=== PATIENT | male | born 1955 | race Caucasian/White ===

== ENCOUNTER → 2016-11-04 | Outpatient (CLI) | payer OTHER ==
[~2016-11-04] MED LIST: ALBU18002 INH; ASPI81TA28 PO; DOCU-94 PO; FLUT0.15 NAE; OXYC-57 PO; VNTHFA/IN INH
--- NOTE | 2016-11-04 13:43 | DIAGNOSTIC IMAGING REPORT ---
CHEST 2 VIEWS ROUTINE CLINICAL HISTORY: Lung nodule. COMPARISON STUDY: Chest CT October 16, 2016. FINDINGS: Cardiac size is normal. Mediastinal contours are normal. A small right pleural effusion is noted. There is no left pleural effusion. There is no evidence of pulmonary edema. Right-sided rib deformities are present. Lung nodules shown on recent chest CT are not well visualized on this exam likely due to technique. There are post surgical findings within the right hemithorax. IMPRESSION: 1. No significant change in a small right pleural effusion. 2. The lung nodules shown on recent chest CT of October 16, 2016 are not well visualized on since exam likely due to technique. Electronically signed by: Frantz Hernadez M.D. 11/04/2016 1:41 PM
== END | disposition home or self-care (01) ==
LOC: C.CPL 11:41
PROVIDERS: ATTEND Surgery
DX: C34.90 Malignant neoplasm of unspecified part of unspecified bronchus or lung (principal); J90 Pleural effusion, not elsewhere classified

== ENCOUNTER → 2016-11-05 | Outpatient (CLI) | payer OTHER ==
--- NOTE | 2016-11-05 09:08 | DIAGNOSTIC IMAGING REPORT ---
NUCLEAR MEDICINE QUANTITATIVE PERFUSION LUNG SCAN CLINICAL HISTORY: Right lung mass. COMPARISON STUDY: Chest CT October 16, 2016 and chest radiograph November 04, 2016. TECHNIQUE: 5.6 mCi of technetium 99m MAA was injected IV at 8:30 AM on November 05, 2016. Immediately following injection, imaging of the chest was performed in the anterior, posterior, BECKER, CRISTOPHER, left lateral, right lateral, LPO and RPO projections. Geometric means were calculated. FINDINGS: The detailed analysis is located within the PACS system. Geometric means were calculated. Percent perfusion within the left upper lung was 16.4%. Within the left midlung, it was 36.7% and within the left lower lung, it was 12.9%. Differential perfusion was 2.1% within the right upper lung, 22% within the right midlung and 9.8% within the right lower lung. Split perfusion was 66% left lung and 34% right lung. No segmental defects are identified. IMPRESSION: 1. Split perfusion of 66% left lung and 34% right lung, as detailed above. 2. No segmental defects identified. Electronically signed by: Frantz Hernadez M.D. 11/05/2016 9:06 AM
== END | disposition home or self-care (01) ==
LOC: C.NUCL 08:21
PROVIDERS: ATTEND Surgery
DX: R91.8 Other nonspecific abnormal finding of lung field (principal)

== ENCOUNTER → 2016-11-11 | Outpatient (CLI) | payer OTHER ==
--- NOTE | 2016-11-11 11:14 | DIAGNOSTIC IMAGING REPORT ---
PET/CT CLINICAL HISTORY: History of lung cancer status post right upper lobectomy. New nodule. TECHNIQUE: A PET/CT was performed from the skull base through the upper thighs following intravenous injection of 15.97 mCi of F 18 FDG IV. The injection was performed at 9:04 AM on November 11, 2016. and imaging began at 10:01 AM on November 11, 2016. Unenhanced CT was performed for attenuation correction purposes and anatomic localization. COMPARISON STUDY: PET/CT April 22, [address] October 16, 2016. FINDINGS: Head and neck: No areas of suspicious FDG uptake are identified within the neck. There is no cervical lymphadenopathy. Chest: Mild multifocal FDG uptake within each hilum, right greater than left, is only minimally increased since PET/CT of April 22, 2015. These foci correspond to nonenlarged lymph nodes. The SUV max of the right hilum on current exam is 3.2. It previously measured 2.6. A nonenlarged left upper mediastinal lymph node shown on image 72 measures 7 mm in short axis diameter. On CT of October 16, 2016, it measured 9 mm. This node appears to be decrease in size. This node has mild FDG uptake with an SUV max of 2. AP window lymph nodes have also decreased in size since exam of October 16, 2016. No pathologically enlarged thoracic lymph node are present on current exam. There are postsurgical findings consistent with a right upper lobectomy. A small right pleural effusion is noted. This may be chronic. A 5 mm nodule within the superior segment of the left lower lobe shown on image 77 is new since PET/CT of April 22, 2015. This is similar to exam of October 16, 2016. This is below size for evaluation by PET imaging. A 9 mm right midlung nodule shown on image 88 is unchanged since exam October 16, 2016 but new since prior PET/CT. This is also below size threshold for PET imaging. A 1 cm irregular opacity within the right apical on image 70 is unchanged since prior exam. This is also indeterminate. Abdomen and Pelvis: No suspicious FDG uptake is identified within the abdomen or the pelvis. There is no abdominal or pelvic lymphadenopathy. Musculoskeletal: No suspicious skeletal uptake is identified. IMPRESSION: 1. 9 mm right mid lung nodule and 5 mm left lower lobe nodule. These are similar to CT of October 16, 2016 but new since PET/CT of April 22, 2015. These are below size threshold for evaluation by PET imaging but are highly suggestive of a neoplastic process. These could reflect metastases or multifocal adenocarcinoma. Indeterminate 1.1 cm irregular right apical opacity. 2. Status post right upper lobectomy. Stable small right pleural effusion. 3. Interval decrease in several mediastinal lymph nodes since CT of October 16, 2016. No enlarged nodes on this exam. Mild multifocal bilateral hilar karl uptake is nonspecific and only minimally increased since PET/CT of April 22, 2015. This likely corresponds to nonenlarged lymph nodes. This uptake is nonspecific although not highly suggestive of karl spread of disease. Electronically signed by: Frantz Hernadez M.D. 11/11/2016 11:12 AM Dictated Date/Time: 11/11/2016 10:49 AM
== END | disposition home or self-care (01) ==
LOC: C.PET 08:56
PROVIDERS: ATTEND Surgery
DX: R91.8 Other nonspecific abnormal finding of lung field (principal); R91.1 Solitary pulmonary nodule

== ENCOUNTER → 2016-11-12 | Outpatient (CLI) | payer OTHER ==
--- NOTE | 2016-11-12 08:04 | DIAGNOSTIC IMAGING REPORT ---
CT OF THE CHEST WITHOUT CONTRAST SUPERDIMENSIONAL PROTOCOL CT DOSE: 283.27 mGy.cm CLINICAL HISTORY: Right lung nodule. History of lung cancer status post right upper lobectomy. TECHNIQUE: Axial images of the chest were obtained without IV contrast according to the superdimensional protocol. COMPARISON STUDY: Chest CT October 16, 2016 and PET/CT November 11, 2016. FINDINGS: There are post surgical findings consistent with a right upper lobectomy. No enlarged axillary, mediastinal or hilar lymph nodes are present. The size of the heart is normal. There is no pericardial effusion. A small right pleural effusion is unchanged. This may be chronic. Note is made of a 9 mm right mid lung nodule shown on axial image 120 346. This is mixed solid and groundglass. This nodule has increased in size since exam of July 20, 2016 is new since chest CT of June 28, 2015. There is a similar appearing but smaller 8 mm nodule within the superior segment of the left lower lobe shown on image 94 346. This is also new since CT of June 28, 2015. A 1.2 cm irregular density within the right apex shown on image 60 of 346 is indeterminate. This is unchanged since CT of July 20, 2016. The bony thorax and upper abdomen are unremarkable. IMPRESSION: 1. 9 mm mixed solid and groundglass right midlung nodule and 8 mm groundglass nodule within the left lower lobe. These are suggestive of a neoplastic process and could reflect metastases or multifocal adenocarcinoma. 2. No thoracic lymphadenopathy. 3. Status post right upper lobectomy. Stable small right pleural effusion. 4. Stable indeterminate 1.2 cm right apical irregular density which can be assessed on subsequent exams. Electronically signed by: Frantz Hernadez M.D. 11/12/2016 8:02 AM Dictated Date/Time: 11/12/2016 7:52 AM
== END | disposition home or self-care (01) ==
LOC: C.CTS 06:49
PROVIDERS: ATTEND Surgery
DX: R91.8 Other nonspecific abnormal finding of lung field (principal); Z90.2 Acquired absence of lung [part of]

== ENCOUNTER 2016-11-25 05:36 | Day surgery (SDC) | payer OTHER ==
[2016-11-10 16:05] VITALS: BMI 22.0
[~2016-11-25] VITALS: Ht 180.3 cm; Wt 73.0 kg
[~2016-11-25 05:36] MED LIST changes: -DOCU-94 PO; -OXYC-57 PO; -VNTHFA/IN INH
[2016-11-25] MEDS ORDERED: LACTATED RINGER'S 1000ML 1,000 ML IV SCH (06:00)
[2016-11-25 06:32] VITALS: BP 132/78; PULSE 70; TEMP 36.6; O2SAT 98; Ht 180.3 cm; Wt 73.0 kg
[2016-11-25] MEDS ORDERED: FENTANYL CITRATE INJ 50 MCG/1 ML 2 ML VIAL ONE (06:47)
[2016-11-25] MEDS ORDERED: MIDAZOLAM HCL 1 MG/ML 2ML VIAL ONE (06:47)
--- NOTE | 2016-11-25 07:05 | History & Physical Bridge Note ---
H&P Re-Evaluation Bridge Note: I have examined the patient, reviewed the History & Physical and in the interval since the performance of the History & Physical I have noted the following changes of clinical significance: No changes noted
[2016-11-25] MEDS ORDERED: ROCURONIUM BROMIDE 10 MG/ML 5 ML VIAL ONE (08:22)
[2016-11-25] MEDS ORDERED: ALBUTEROL HFA INHALER 8.5 GM INH ONE (08:22)
[2016-11-25] MEDS ORDERED: LIDOCAINE HCL 2% 2 ML VIAL (20MG/ML) ONE (08:22)
[2016-11-25] MEDS ORDERED: SUCCINYLCHOLINE CHLORIDE 20 MG/ML 10 ML VIAL IV ONE (08:22)
[2016-11-25] MEDS ORDERED: PROPOFOL IV EMULSION 10 MG/ML 20 ML VIAL IV ONE (08:22)
[2016-11-25] MEDS ORDERED: LARYING-O-JET KIT (LTA) EXT ONE ×2 (08:22)
[2016-11-25] MEDS ORDERED: ONDANSETRON INJ 2 MG/ML 2 ML VIAL ONE (08:22)
[2016-11-25] MEDS ORDERED: DEXAMETHASONE SOD INJ 4 MG/ML VIAL ONE (08:22)
--- NOTE | 2016-11-25 08:23 | Discharge Instructions ---
Discharge Instructions Visit Reason for Visit: Right Lung Nodule Discharge Discharge Diagnosis / Problem: Right Lung Nodule Discharge Goals Goal(s): Learn about illness Activity Recommendations Activity Limitations: resume your previous activity (in 24 hours) Anesthesia . Post Anesthesia Instructions: If you have had General Anesthesia or IV Sedation: * Do not drive today. * Resume driving when surgeon permits. * Do not make important decisions or sign legal documents today. * Call surgeon for: 1. Temperature elevations greater than 101 degrees F. 2. Uncontrollable pain. 3. Excessive bleeding. 4. Persistent nausea and vomiting. 5. Medication intolerance (nausea, vomiting or rash). * For nausea and vomiting use only clear liquids such as: tea, soda, bouillon until nausea subsides, then gradually increase diet as tolerated. * If you have any concerns or questions, call your surgeon's office. If physician is unavailable and it is an emergency, call 911 or go to the nearest emergency room. . Instructions / Follow-Up Instructions / Follow-Up 1. You may cough up some blood. Call physician if excessive amount noted. 2. Keep your scheduled appointment with Dr. Cornejo on 11/25/16 @ 9:30 am. Diet Recommendations Recommended Home Diet: resume previous diet Pending Studies Studies pending at discharge: no Medical Emergencies . Who to Call and When: Medical Emergencies: If at any time you feel your situation is an emergency, please call 911 immediately. . Non-Emergent Contact Non-Emergency issues call your: Surgeon . . "Provider Documentation" section prepared by Kingston Epps.
[2016-11-25] MEDS ORDERED: CLINDAMYCIN PHOS 150 MG/ML 2 ML VIAL ONE (08:28)
[2016-11-25] MEDS ORDERED: GLYCOPYRROLATE INJ 0.2 MG/ML VIAL ONE (08:29)
[2016-11-25] MEDS ORDERED: NEOSTIGMINE METHYLSULFATE 5 MG/5 ML SYR ONE (08:29)
--- NOTE | 2016-11-25 09:59 | DIAGNOSTIC IMAGING REPORT ---
FLUOROSCOPIC IMAGES OF THE CHEST CLINICAL HISTORY: Navigational bronchoscopy. COMPARISON STUDY: Chest CT November 12, 2016. Fluoroscopy time: 5 minutes and 7 seconds. FINDINGS: 2 fluoroscopic images were obtained from bilateral bronchoscopy. Fiducial markers are noted. IMPRESSION: Fluoroscopic images from bilateral bronchoscopy with fiducial marker placement. Electronically signed by: Frantz Hernadez M.D. 11/25/2016 9:57 AM Dictated Date/Time: 11/25/2016 9:55 AM
[2016-11-25] MEDS ORDERED: FENTANYL CITRATE INJ 50 MCG/1 ML 2 ML VIAL IV PRN (10:15)
[2016-11-25] MEDS ORDERED: NALOXONE HCL 0.4 MG/1 ML VIAL/CARP IV PRN (10:15)
[2016-11-25] MEDS ORDERED: EpHEDrine SULFATE INJ 50 MG/ML AMP IV PRN (10:15)
[2016-11-25] MEDS ORDERED: FLUMAZENIL 0.1 MG/1 ML 10 ML VIAL IV PRN (10:15)
[2016-11-25] MEDS ORDERED: ONDANSETRON INJ 2 MG/ML 2 ML VIAL IV PRN (10:15)
[2016-11-25] MEDS ORDERED: PROMETHAZINE HCL INJ 12.5 MG in SODIUM CHLORIDE 0.9% 50ML 50 ML IV PRN (10:15)
[2016-11-25] MEDS ORDERED: ATROPINE SULFATE 0.1 MG/ML 5ML SYR IV PRN (10:15)
[2016-11-25] MEDS ORDERED: LABETALOL HCL IV 5 MG/ML 20ML IV PRN (10:15)
--- NOTE | 2016-11-25 10:32 | DIAGNOSTIC IMAGING REPORT ---
CHEST ONE VIEW PORTABLE CLINICAL HISTORY: s/p EBUS and navigational bronchoscopy. COMPARISON STUDY: Chest CT T November 12, 2016. FINDINGS: A small right pleural effusion is unchanged. There is no pneumothorax. Bilateral fiducial markers have been placed. Moderate airspace opacity is noted adjacent to the right fiducial marker with mild opacity noted adjacent to the left fiducial marker. Post surgical findings within the right hemithorax are noted. IMPRESSION: 1. No pneumothorax status post bilateral bronchoscopy. 2. Small right pleural effusion which is unchanged. 3. Interval placement of bilateral fiducial markers with adjacent airspace opacity. Electronically signed by: Frantz Hernadez M.D. 11/25/2016 10:30 AM Dictated Date/Time: 11/25/2016 10:28 AM
--- NOTE | 2016-11-25 10:45 | OPERATIVE REPORT ---
DATE OF OPERATION: 11/25/2016 PREOPERATIVE DIAGNOSIS: 1. Bilateral lower lobe nodules. 2. Status post right middle and upper bilobectomy for nonsmall cell lung carcinoma in the past. POSTOPERATIVE DIAGNOSIS: Same. PROCEDURE: 1. Endobronchial ultrasound with biopsy of mediastinal lymph nodes. 2. Navigational bronchoscopy with biopsies and fiducial markers, both the right lower lobe and left lower lobe masses. SURGEON: Dr. Cornejo. PROCESSING SUPERVISOR: Bartolome Mills, respiratory therapy. ANESTHESIA: General anesthesia with endotracheal intubation. INDICATION FOR PROCEDURE AND FINDINGS: Jaron Vila is a very nice 61-year-old male who underwent a right upper and middle bilobectomy for nonsmall cell lung carcinoma. He has done well in the interim and an underwent a routine screening CT scan and was found to have a suspicious nodule in his remaining right lower lobe as well as superior segment of the left lower lobe. I evaluated him and felt that a navigational bronchoscopy with a full workup including a PET scan were indicated. On 11/25/2016 I brought the patient to the operating room and did an uncomplicated video mediastinoscopy and biopsied multiple lymph node stations. We got lymphocytes back on the fine needle aspirations with rapid on-site evaluation but did not see evidence of malignancy. I then did a navigational bronchoscopy and felt I was in the area of both these masses, especially with the ultrasound guidance, although the left lower lobe mass was difficult given the fact that it was in the superior segment. I biopsied the right side with brushes and needles, biopsy forceps with touch preps and wash and then left a fiducial marker. On the left I was a bit more comfortable with how close we were to the pleura, so I did brushes and did a single needle biopsy. I then did washings and left a fiducial marker. The rapid on-site evaluation did not show evidence of malignancy. PROCEDURE: The patient was brought to the operating room and laid supine position. General anesthesia induced and endotracheal intubation was performed with a single lumen tube. After appropriate timeout had again been called and prophylactic antibiotics had been given a endobronchial ultrasound scope was placed. I first went down to the left level 11 area and saw some small lymph nodes which I biopsied, although they were less than 5 mm, came back up to the level 10 node and biopsied this several times and got lymphocytes, no evidence of malignancy. I biopsied the left level 4 area and got lymphocytes, no evidence of malignancy. I then biopsied the level 7 node several times, 3 from the left side and 3 from the right side, again the rapid on-site evaluation showed lymphocytes but no evidence of malignancy. I then biopsied the level 11 node on the right and level 4 node. I had difficulty seeing a level 10 node. The patient did have a bilobectomy in the past and has some scarring. We got lymphocytes back but no evidence of malignancy. We irrigated this out so no significant bleeding. I then removed the endobronchial ultrasound scope. Regular flexible bronchoscope was placed and I carefully inspected down to the tertiary airways and saw no evidence of any endobronchial lesions. The middle lobe and the upper lobe stumps appeared to be intact. The navigational probe was then placed through the working channel with the fiberoptic bronchoscope. The superDimension probe was then used to register the patient's airways. I then began mapping and went first into the right lower lobe and without too much manipulation was able to come right out to the mass. We could see this very well with our radial ultrasound probe. I then did brushings as well as needle biopsies and multiple forceps biopsies with a touch prep. We saw no evidence of malignancy. I elected fiducial marker and then did a washing of this area. Attention was then turned towards the left side. This was much more difficult to get to but we were finally able to get out to the mass. I was able to see it with the radial ultrasound probe and I felt we were very close to the pleura. I did brushings and then under fluoroscopic guidance and after the radial ultrasound probe showed that we were in the area of the mass I did 1 needle biopsy, but I did not want to be too aggressive as I did not want to give him the possibility of bilateral pneumothoraces. I then did washings and left a fiducial marker. I then slowly withdrew the bronchoscope and saw no evidence of bleeding. He tolerated it well. I attest to the content of the Intraoperative Record and any orders documented therein. Any exceptio ns are noted below.
--- NOTE | 2016-11-25 10:57 | Anesthesiology Progress Note ---
Anesthesia Post Op Note Date & Time Nov 25, 2016 at 10:57 Vital Signs Pain Intensity: 0 Vital Signs Past 12 Hours Date Time Temp Pulse Resp B/P Pulse Ox O2 Delivery O2 Flow Rate FiO2 11/25/16 10:45 67 20 121/77 99 Nasal Cannula 4 11/25/16 10:35 36.4 73 20 108/80 99 Nasal Cannula 4 11/25/16 10:25 86 20 119/74 99 Mask 10 11/25/16 10:15 63 20 126/76 99 Mask 10 11/25/16 10:05 72 18 111/69 98 Mask 10 11/25/16 10:01 36.0 73 18 110/70 98 Mask 10 11/25/16 06:32 36.6 70 18 132/78 98 Room Air Notes Mental Status: alert / awake / arousable, participated in evaluation Pt Amnestic to Procedure: Yes Nausea / Vomiting: adequately controlled Pain: adequately controlled Airway Patency, RR, SpO2: stable & adequate BP & HR: stable & adequate Hydration State: stable & adequate Anesthetic Complications: no major complications apparent
[2016-11-25 11:08] VITALS: BP 119/71; PULSE 82; TEMP 37.2; O2SAT 99
[2016-11-25 11:30] VITALS: BP 119/74; PULSE 87; TEMP 37.2; O2SAT 94
[2016-12-09] MEDS ORDERED: VNTHFA/IN INH (14:54)
== END 2016-11-25 12:02 | disposition home or self-care (01) ==
LOC: C.ACU 05:36
PROVIDERS: ATTEND Surgery
DX: R91.8 Other nonspecific abnormal finding of lung field (principal); R91.1 Solitary pulmonary nodule; R05 Cough; Z85.118 Personal history of other malignant neoplasm of bronchus and lung; Z87.891 Personal history of nicotine dependence; Z80.8 Family history of malignant neoplasm of other organs or systems

== ENCOUNTER 2016-12-18 10:15 | Inpatient (IN) | payer OTHER ==
[2016-12-09 14:57] VITALS: BMI 22.0
[2016-12-18] VITALS (8 sets, daily range): BP systolic 90–139; BP diastolic 58–88; PULSE 88–115; TEMP 36.4–37; O2SAT 95–100; Ht 180.3 cm; Wt 73.0 kg
[~2016-12-18] VITALS: Ht 180.3 cm; Wt 73.0 kg
[~2016-12-18 10:15] MED LIST changes: -ALBU18002 INH; +DEXAMETHASONE SOD INJ 4 MG/ML VIAL ONE; +FENTANYL CITRATE INJ 50 MCG/1 ML 2 ML VIAL ONE; +GLYCOPYRROLATE INJ 0.2 MG/ML VIAL ONE; +LACTATED RINGER'S 1000ML 1,000 ML IV SCH; +LIDOCAINE HCL 2% 2 ML VIAL (20MG/ML) ONE; +MIDAZOLAM HCL 1 MG/ML 2ML VIAL ONE; +NEOSTIGMINE METHYLSULFATE 5 MG/5 ML SYR ONE; +ONDANSETRON INJ 2 MG/ML 2 ML VIAL ONE; +PROPOFOL IV EMULSION 10 MG/ML 20 ML VIAL IV ONE; +ROCURONIUM BROMIDE 10 MG/ML 5 ML VIAL ONE; +VNTHFA/IN INH
[2016-12-18] MEDS ORDERED: BUPIVACAINE LIPOSOME 1/3% 266 MG/20 ML VIAL INFIL ONE (10:47)
[2016-12-18] MEDS ORDERED: SODIUM CHLORIDE 0.9% PF 50 ML VIAL ONE (10:47)
[2016-12-18] MEDS ORDERED: PROPOFOL IV EMULSION 10 MG/ML 20 ML VIAL IV ONE (12:11)
[2016-12-18] MEDS ORDERED: ROCURONIUM BROMIDE 10 MG/ML 5 ML VIAL ONE (12:34)
[2016-12-18] MEDS ORDERED: FLUMAZENIL 0.1 MG/1 ML 10 ML VIAL IV PRN (13:00)
[2016-12-18] MEDS ORDERED: ATROPINE SULFATE 0.1 MG/ML 5ML SYR IV PRN (13:00)
[2016-12-18] MEDS ORDERED: ONDANSETRON INJ 2 MG/ML 2 ML VIAL IV PRN ×2 (13:00→14:15)
[2016-12-18] MEDS ORDERED: LABETALOL HCL IV 5 MG/ML 20ML IV PRN (13:00)
[2016-12-18] MEDS ORDERED: NALOXONE HCL 0.4 MG/1 ML VIAL/CARP IV PRN (13:00)
[2016-12-18] MEDS ORDERED: PROMETHAZINE HCL INJ 12.5 MG in SODIUM CHLORIDE 0.9% 50ML 50 ML IV PRN (13:00)
[2016-12-18] MEDS ORDERED: EpHEDrine SULFATE INJ 50 MG/ML AMP IV PRN (13:00)
[2016-12-18] MEDS ORDERED: FENTANYL CITRATE INJ 50 MCG/1 ML 2 ML VIAL ONE (13:23)
[2016-12-18] MEDS ORDERED: OXYCODONE/ACETAMINOPHEN 5-325 TAB PO PRN (14:15)
[2016-12-18] MEDS ORDERED: MoRPHine SULFATE 2 MG/ML CARP IV PRN (14:15)
[2016-12-18] MEDS ORDERED: ALBUTEROL HFA 8 GM INHALER INH PRN (14:15)
--- NOTE | 2016-12-18 15:15 | DIAGNOSTIC IMAGING REPORT ---
SINGLE VIEW CHEST CLINICAL HISTORY: Status post left upper lobe resection. FINDINGS: An AP, portable, upright chest radiograph is compared to study dated 11/25/2016. Correlation is made with chest CT dated 11/12/2016. The examination is degraded by portable technique and patient rotation. The heart is normal in size. There is evidence carotid calcification of the thoracic area. The pulmonary vasculature is noncongested. Emphysema is noted. There are chronic changes from right-sided pulmonary resection. A fiducial projects over the right chest. A left chest tube is located at the left apex, and there is evidence of left-sided pulmonary resection. The left upper lobe fiducial seen previously is no longer identified. Pleural fluid is noted at both lung bases. There are patchy airspace opacities at the left lung base. No pneumothorax is seen. Subcutaneous emphysema is present along the left chest wall and in the left neck. The skeletal structures are osteopenic. Degenerative change and scoliosis are present in the thoracic spine. There are healed right posterior rib fractures. IMPRESSION: 1. There are postoperative changes from left-sided pulmonary resection with a left chest tube in place. No pneumothorax is seen. 2. Emphysema and chronic changes from previous right-sided pulmonary resection are noted. 3. Pleural fluid is present at both lung bases. Airspace opacities at the left lung base may represent atelectasis. Clinical correlation will be required. Electronically signed by: Landry Womack M.D. 12/18/2016 3:14 PM Dictated Date/Time: 12/18/2016 3:09 PM
[2016-12-18 15:16] LABS: ARTERIAL BLD GAS O2 SATURATION 99.3 % (90-95); ARTERIAL BLOOD GAS BASE EXCESS -2.3 mEq/L (-9-1.8); ARTERIAL BLOOD GAS HCO3 24 mmol/L (19-24); ARTERIAL BLOOD GAS PO2 179 mm/Hg (80-95); ARTERIAL BLOOD GAS pH 7.35 (7.35-7.45)
[2016-12-18 15:28] LABS: O2 ADMINISTRATION 50%
[2016-12-18] MEDS: HYDROmorphone INJ 1 MG/ML SYR IV PRN ×5 (15:38→16:15)
--- NOTE | 2016-12-18 16:35 | Anesthesiology Progress Note ---
Anesthesia Post Op Note Date & Time Dec 18, 2016 at 16:34 Vital Signs Pain Intensity: 8 Vital Signs Past 12 Hours Date Time Temp Pulse Resp B/P Pulse Ox O2 Delivery O2 Flow Rate FiO2 12/18/16 15:20 72 18 98 Mask 10 102/59 12/18/16 15:14 64 11 12/18/16 15:14 64 11 100/58 12/18/16 15:10 64 22 109/39 92 Mask 10 92/50 12/18/16 15:09 64 23 109/39 97 12/18/16 15:09 62 23 12/18/16 15:04 17 12/18/16 15:04 64 17 87/54 12/18/16 15:03 81/59 12/18/16 15:00 68 18 Mask 10 86/48 12/18/16 14:59 65 23 12/18/16 14:59 67 23 90/54 12/18/16 14:54 64 22 12/18/16 14:54 75 22 94/53 92 12/18/16 14:53 95/70 12/18/16 14:50 65 22 100 Mask 10 94/47 12/18/16 14:49 60 26 95/49 100 12/18/16 14:49 60 26 12/18/16 14:44 62 27 12/18/16 14:44 63 27 300/300 91 12/18/16 14:43 64 23 92/55 100 12/18/16 14:43 63 23 12/18/16 14:43 36.1 71 24 84/50 94 Mask 10 94/51 12/18/16 10:33 36.9 105 20 139/88 95 Room Air Notes Mental Status: alert / awake / arousable, participated in evaluation Pt Amnestic to Procedure: Yes Nausea / Vomiting: adequately controlled Pain: adequately controlled Airway Patency, RR, SpO2: stable & adequate BP & HR: stable & adequate Hydration State: stable & adequate Anesthetic Complications: no major complications apparent Patient awake and stable. Acceptable oxygenation on nasal cannula. CO2 not impaired by ABG drawn in pacu. Minimal leak noted in chest tube. CXR done after 1.5 hours in pacu revealed no expanding pneumothorax. Pain control is acceptable on intermittent small bolus dosing of narcotics. Okay to go to floor overnight.
--- NOTE | 2016-12-18 16:43 | DIAGNOSTIC IMAGING REPORT ---
CHEST ONE VIEW PORTABLE CLINICAL HISTORY: Follow up postoperative evaluation COMPARISON STUDY: 12/18/2016 FINDINGS: Expected postoperative changes post left upper lobe resection. Left-sided chest tube in position. No significant postprocedural pneumothorax. Residual atelectatic change left lung base. Cutaneous emphysematous change stable. IMPRESSION: Stable postoperative changes as described. No new or interval finding. Electronically signed by: Daniel Soler M.D. 12/18/2016 4:42 PM Dictated Date/Time: 12/18/2016 4:41 PM
--- NOTE | 2016-12-18 16:46 | OPERATIVE REPORT ---
DATE OF OPERATION: 12/18/2016 PREOPERATIVE DIAGNOSES: 1. Bilateral lower lobe nodules. 2. History of nonsmall cell lung carcinoma with right upper lobectomy in the past. POSTOPERATIVE DIAGNOSIS: Apparent metastatic carcinoma to left lower lobe of lung. PROCEDURES: 1. Left thoracoscopy with extensive lysis of adhesions. 2. Wedge resection of mass, superior segment of the left upper lobe. 3. Wedge resection with repair of air leak, left lower lobe. SURGEON: Dr. Cornejo. SUPERVISOR CHEMICAL: PHILLIP Monson. SPECIFICS OF PROCEDURE: Mr. Vila is a 61-year-old male who has a history of having undergone a right upper lobectomy about a year and half ago. He was a stage I and had a nonsmall cell lung carcinoma. The patient did well until a recent surveillance CT scan showed he had 2 new masses that are very small, one in the remaining right lower lobe which is a bit more intraparenchymal, more than the superior segment of the left lower lobe. I discussed this case with cancer conference as this is an interesting patient as far as how to approach this. These lesions were not amenable to needle biopsy. Navigational bronchoscopy was considered and I took him to the operating room and did the navigational bronchoscopy and biopsied both of these areas as well as endobronchial ultrasound with biopsy of mediastinal lymph nodes. I left fiducial markers at both. We did not get a diagnosis. Discussed this with the patient and I offered him a left thoracoscopy as I felt it would be very simple proceeding to excise the superior segment of the left lower lobe with a wedge resection. PROCEDURE IN DETAIL: On 12/18/2016, the patient was brought to the operating room and I was a bit dismayed to see how much adhesions he had. I reinsufflated with CO2 and was finally able to get into the pleural cavity and took down these adhesions meticulously using a hooked cautery as well as the Harmonic scalpel. I placed 2 other 10 mm ports, one anteriorly about the seventh interspace and one about the fourth interspace, a bit more posterior. After taking down all these adhesions, I then was able to palpate this with the incisions and wedge this out. This appears to be metastatic adenocarcinoma and similar in appearance to his tumor from a year and half ago. We stopped there. However, on closing his chest, he had a significant air leak, went back and in the area where he had taken down adhesions did have a leak. I was able to wedge this out with a stapler. We really did not see an air leak after that. We irrigated out the chest. His blood loss was negligible. A 24-Cypriot chest tube was placed in the anterior thoracoscopy port and sutured in place with heavy silk suture and multiple layers of all 3 ports were closed with a 0 Vicryl. A 24-Cypriot chest tube was sutured in place with a heavy silk suture. 3-0 Vicryl impregnated with antibiotics was used to close the skin incisions of all 3 incisions in a running fashion. He tolerated it well with negligible blood loss and was extubated in the room. I attest to the content of the Intraoperative Record and any orders documented therein. Any exceptio ns are noted below.
[2016-12-18 19:01] LABS: PROTHROMBIN TIME (PATIENT) 10.4 SECONDS (9.0-12.0)
[2016-12-18] MEDS: KETOROLAC TROMETHAMINE 15 MG/ML VIAL IV. SCH (19:36)
[2016-12-18] MEDS: CLINDAMYCIN IV 900 MG in DEXTROSE 5% ADD-VANTAGE 100ML 100 ML IV SCH (19:36)
[2016-12-18] MEDS: D5W AND 1/2NSS 1,000 ML IV SCH (19:37)
[2016-12-18] MEDS: ACETAMINOPHEN IV 1,000 MG in EMPTY BAG 0 ML IV SCH (20:43)
[2016-12-18] MEDS: DOCUSATE SODIUM 100 MG CAP PO SCH (20:44)
[2016-12-18] MEDS: METOCLOPRAMIDE HCL INJ 5 MG/ML 2 ML VIAL IV. SCH (20:45)
[2016-12-19] MEDS: CLINDAMYCIN IV 900 MG in DEXTROSE 5% ADD-VANTAGE 100ML 100 ML IV SCH (00:10)
[2016-12-19] MEDS: KETOROLAC TROMETHAMINE 15 MG/ML VIAL IV. SCH ×2 (02:25→07:57)
[2016-12-19] MEDS: ACETAMINOPHEN IV 1,000 MG in EMPTY BAG 0 ML IV SCH ×2 (02:25→07:57)
[2016-12-19 03:23] VITALS: BP 96/61; PULSE 78; TEMP 36.5; O2SAT 95
[2016-12-19] MEDS: D5W AND 1/2NSS 1,000 ML IV SCH ×2 (04:05→11:45)
[2016-12-19] MEDS: METOCLOPRAMIDE HCL INJ 5 MG/ML 2 ML VIAL IV. SCH ×2 (05:33→11:46)
[2016-12-19 06:57] VITALS: BP 95/60; PULSE 77; TEMP 36.5; O2SAT 96
--- NOTE | 2016-12-19 07:22 | DIAGNOSTIC IMAGING REPORT ---
CHEST ONE VIEW PORTABLE CLINICAL HISTORY: s/p left wedge resection COMPARISON STUDY: Chest radiograph December 18, 2016. FINDINGS: A left-sided chest tube is in place. Gas within the left chest wall and left neck is noted. There is a suspected tiny left apical pneumothorax. A fiducial marker within the right lung is noted. Mild left basilar opacity persists. IMPRESSION: 1. Suspected tiny left apical pneumothorax. Left chest tube in place. 2. Mild left basilar opacities which favor atelectasis. Electronically signed by: Frantz Hernadez M.D. 12/19/2016 7:21 AM Dictated Date/Time: 12/19/2016 7:19 AM
[2016-12-19] MEDS ORDERED: DOCU-94 PO (07:25)
[2016-12-19] MEDS ORDERED: OXYC-57 PO (07:25)
--- NOTE | 2016-12-19 07:28 | Discharge Instructions ---
Discharge Instructions Admission Reason for Admission: Left Lung Mass Discharge Discharge Diagnosis / Problem: Left Lung Mass Discharge Goals Goal(s): Learn about illness Activity Recommendations Activity Limitations: as noted below Lifting Limitations: none Shower/Bathe: may shower/bathe in [address] if taking percocet. 2. You may remove dressing and shower in 3 days. No tub baths. 3. Do not fly or SCUBA dive until cleared to do so by [facility] Juárez. . Instructions / Follow-Up Instructions / Follow-Up 1. Office appointment with Dr. Cornejo in 1-2 weeks. Office will call you with date and time of appointment. You will need a chest x-ray prior to appointment. Current Hospital Diet Patient's current hospital diet: Regular Diet Discharge Diet Recommended Diet: Regular Diet Procedures Procedures Performed: Left Video-Assisted Thoracoscopy with Left Lower Lobe Wedge Resection Pending Studies Studies pending at discharge: no Medical Emergencies . Who to Call and When: Medical Emergencies: If at any time you feel your situation is an emergency, please call 911 immediately. . Non-Emergent Contact Non-Emergency issues call your: Surgeon Call Non-Emergent contact if: you have a fever, your pain is not controlled, wound has increased drainage . "Provider Documentation" section prepared by Kingston Epps. VTE Core Measure Inpt VTE Proph given/why not?: Enoxaparin (Lovenox)SQ
--- NOTE | 2016-12-19 07:33 | Discharge Summary ---
Discharge Summary Admission Date: Dec 18, 2016 at 11:10 Discharge Date: Dec 19, 2016 Discharge Disposition: Home Principal Diagnosis: Left Lung Mass Immunizations: Have You Had Influenza Vaccine: No History of Tetanus Vaccine?: Yes Tetanus Immunization Date: Nov 01, 1995 History of Pneumococcal: Unknown History of Hepatitis B Vaccine: Unknown Procedures: Left VATS with Wedge Rresection Consultations: none Medication Reconciliation New Medications: Docusate Sodium (Colace) 100 Mg Cap 1 CAP PO BID for 30 Days, #60 CAP 2 Refills Oxycodone/Acetaminophen 5MG/325MG (Percocet 5MG/325MG) Tab 1-2 TABLETS PO Q4H PRN for Pain, #25 TAB Continued Medications: Albuterol Hfa (Ventolin Hfa) 200 Puffs/91918 Mcg Aers 2-4 PUFFS INH Q6H PRN for Shortness of Breath, #1 INHALER Aspirin (Aspirin Ec) 81 Mg Tab 81 MG PO QAM DOESNT NEED TO HOLD PER PATIENT Fluticasone Propionate (Nasal) (Flonase Allergy Relief) 50 Mcg/Act Spr 2 SPRAY COREY DAILY Discharge Exam Review of Systems: Constitutional: No chills, No fever Respiratory: No cough, No shortness of breath Cardiovascular: No chest pain Abdomen: No nausea, No pain, No vomiting Physical Exam: General Appearance: WD/WN, no apparent distress Respiratory/Chest: lungs clear, normal breath sounds, no respiratory distress, no accessory muscle use Cardiovascular: regular rate, rhythm Abdomen / GI: non tender, soft Extremities: no calf tenderness Neurologic/Psychiatric: alert, oriented x 3 Hospital Course 61 year old male with hx. of lung cancer -he had previously undergone RUL and RML -due to new lung nodules he underwent left VATS with wedge resection: -path at time of d/c was pending -pain control measures implemented post-op -pt. encourgaed to use IS, cough, ambulate, and deep breath -CXR post op was without significatn pneumothorax -CT had minimal drainage and no air leak: -tube was pulled on POD#1 -post-pull CXR showed no pneumothorax OTHER -lovenox used post-op for DVT prevention Total Time Spent: Greater than 30 minutes This includes examination of the patient, discharge planning, medication reconciliation, and communication with other providers. Discharge Instructions Please refer to the electronic Patient Visit Report (Discharge Instructions) for additional information. Follow-Up 1. WILL[facility] Surgery in 1-2 weeks with a CXR. Office to call patient with date and time of appointment. Additional Copies To Addy Cornejo MD
[2016-12-19] MEDS: DOCUSATE SODIUM 100 MG CAP PO SCH (07:37)
--- NOTE | 2016-12-19 07:55 | DIAGNOSTIC IMAGING REPORT ---
CHEST ONE VIEW PORTABLE CLINICAL HISTORY: chest tube removal COMPARISON STUDY: Chest radiograph December 19, 2016 6:49 AM. FINDINGS: The left chest tube has been removed. Postsurgical findings within the left hemithorax are noted. Gas within left chest wall and neck is unchanged. No pneumothorax is identified. Mild left basilar opacity favors atelectasis. A fiducial marker within the right lung is noted with old right-sided rib deformities. There is no evidence of pulmonary edema. IMPRESSION: No pneumothorax following removal of left-sided chest tube. Electronically signed by: Frantz Hernadez M.D. 12/19/2016 7:53 AM Dictated Date/Time: 12/19/2016 7:51 AM
[2016-12-19] MEDS ORDERED: FLUTICASONE PROPIONATE NA SPR 16 GM BTL NAE SCH (09:00)
[2016-12-19] MEDS ORDERED: ASPIRIN 81 MG ECTAB PO SCH (09:00)
[2016-12-19] MEDS ORDERED: ENOXAPARIN 40 MG/0.4 ML SYR SQ SCH (09:00)
[2016-12-19 11:18] VITALS: BP 104/62; PULSE 94; TEMP 37; O2SAT 95
[2016-12-19 12:24] VITALS: BP 104/62; PULSE 94; TEMP 37; O2SAT 95
== END 2016-12-19 12:35 | disposition home or self-care (01) | DRG 164 ==
LOC: ENRESERVTM → ENRESERVDT → C.ACU 10:15 → C.MSN 11:10
PROVIDERS: ADMIT Surgery; ATTEND Surgery
PROC: 0BBG4ZX Excision of Left Upper Lung Lobe, Percutaneous Endoscopic Approach, Diagnostic (ICD-10-PCS; principal; 2016-12-18 14:00)
PROC: 0BNL4ZZ Release Left Lung, Percutaneous Endoscopic Approach (ICD-10-PCS; principal; 2016-12-18 14:00)
PROC: 0BBJ4ZZ Excision of Left Lower Lung Lobe, Percutaneous Endoscopic Approach (ICD-10-PCS; principal; 2016-12-18 14:00)
DX: C78.02 Secondary malignant neoplasm of left lung (principal); J93.82 Other air leak; J94.8 Other specified pleural conditions; Z87.891 Personal history of nicotine dependence; Z83.3 Family history of diabetes mellitus; Z85.118 Personal history of other malignant neoplasm of bronchus and lung; Y83.8 Other surgical procedures as the cause of abnormal reaction of the patient, or of later complication, without mention of misadventure at the time of the procedure; Y92.234 Operating room of hospital as the place of occurrence of the external cause; Z90.2 Acquired absence of lung [part of]

== ENCOUNTER → 2016-12-28 | Outpatient (CLI) | payer OTHER ==
[~2016-12-28] MED LIST changes: -DEXAMETHASONE SOD INJ 4 MG/ML VIAL ONE; +DOCU-94 PO; -FENTANYL CITRATE INJ 50 MCG/1 ML 2 ML VIAL ONE; -GLYCOPYRROLATE INJ 0.2 MG/ML VIAL ONE; -LACTATED RINGER'S 1000ML 1,000 ML IV SCH; -LIDOCAINE HCL 2% 2 ML VIAL (20MG/ML) ONE; -MIDAZOLAM HCL 1 MG/ML 2ML VIAL ONE; -NEOSTIGMINE METHYLSULFATE 5 MG/5 ML SYR ONE; -ONDANSETRON INJ 2 MG/ML 2 ML VIAL ONE; +OXYC-57 PO; -PROPOFOL IV EMULSION 10 MG/ML 20 ML VIAL IV ONE; -ROCURONIUM BROMIDE 10 MG/ML 5 ML VIAL ONE
--- NOTE | 2016-12-28 09:07 | DIAGNOSTIC IMAGING REPORT ---
CHEST 2 VIEWS ROUTINE CLINICAL HISTORY: R91.1 Lung nodule lung nodule COMPARISON STUDY: 12/19/2016 FINDINGS: Continued improvement in aeration both hemithoraces. 2. Old right-sided rib fractures. No well-defined pulmonary nodularity based on this exam. IMPRESSION: Improved exam with aeration of both lungs improved. Trace pleural fluid posterior costophrenic angles. No significant parenchymal nodularity based on routine chest evaluation Electronically signed by: Daniel Soler M.D. 12/28/2016 9:05 AM Dictated Date/Time: 12/28/2016 9:04 AM
== END | disposition home or self-care (01) ==
LOC: C.RAD 08:36
PROVIDERS: ATTEND Surgery
DX: R91.1 Solitary pulmonary nodule (principal)

== ENCOUNTER → 2017-04-12 | Outpatient (CLI) | payer OTHER ==
[~2017-04-12] MED LIST changes: +OPTIRAY 320 IV PRN
--- NOTE | 2017-04-12 15:13 | DIAGNOSTIC IMAGING REPORT ---
CT ABD/PELVIS IV AND ORAL CONT CLINICAL HISTORY: LUNG CA COMPARISON STUDY: None. TECHNIQUE: Following the IV administration of 93 mL of Optiray-320, CT scan of the abdomen and pelvis was performed from the lung bases to the proximal femurs. Images are reviewed in the axial, sagittal, and coronal planes. IV contrast was administered without complication. CT DOSE: FINDINGS: Lower chest: The heart is normal in size and configuration, without pericardial effusion. The lung bases and pleural spaces are clear. Liver: There is mild hepatic steatosis. No focal masses are visualized. Gallbladder: Unremarkable. Spleen: Normal in size and attenuation. Pancreas: Unremarkable. Adrenal glands: Unremarkable. Kidneys: There is symmetric renal cortical enhancement. The kidneys are normal in size without hydronephrosis. Bowel: There are no transition zones indicate bowel obstruction. By history the appendix is surgically absent. There is no acute diverticulitis. Peritoneum: There is no intraperitoneal free air or abdominal ascites. Vasculature: The abdominal aorta is normal in course and caliber. Adenopathy: None. Pelvic viscera: Prostate is borderline enlarged. Prostatic calcifications are visualized. Skeletal structures: No destructive osseous lesions are seen. IMPRESSION: No acute findings. No evidence of metastatic disease. Electronically signed by: Ralph Caal M.D. 04/12/2017 3:11 PM Dictated Date/Time: 04/12/2017 3:09 PM
--- NOTE | 2017-04-12 15:17 | DIAGNOSTIC IMAGING REPORT ---
CHEST CT WITH CONTRAST CT DOSE: 489.31 mGy.cm HISTORY: LUNG CA TECHNIQUE: Multiaxial CT images of the chest were performed following the intravenous administration of contrast. COMPARISON: 11/25/2016 FINDINGS: Apparent interval resection of the density of the left upper lung. Unchanging groundglass density right upper lung as well as right apex. No new or interval findings. No significant hilar or mediastinal adenopathy. Lung bases are considered clear. Limited evaluation the upper abdomen shows no acute abnormality. IMPRESSION: 1. Interval resection of the nodular density left upper lung. 2. Stable nodularity right hemithorax. 3. No evidence for new interval or progressive disease. Electronically signed by: Daniel Soler M.D. 04/12/2017 3:16 PM Dictated Date/Time: 04/12/2017 3:10 PM
== END ==
LOC: C.CTS 14:19
PROVIDERS: ATTEND Nurse Practitioner Family
DX: C34.90 Malignant neoplasm of unspecified part of unspecified bronchus or lung (principal)

== ENCOUNTER → 2017-07-06 | Outpatient (CLI) | payer OTHER ==
[~2017-07-06] MED LIST changes: -OXYC-57 PO
--- NOTE | 2017-07-06 13:31 | DIAGNOSTIC IMAGING REPORT ---
CHEST CT WITH CONTRAST CT DOSE: 503.82 mGy.cm HISTORY: Lung cancer. Follow-up. TECHNIQUE: Multiaxial CT images of the chest were performed following the intravenous administration of contrast. A dose lowering technique was utilized adhering to the principles of ALARA. COMPARISON: Chest CT 04/12/2017. FINDINGS: Postoperative changes consistent with a prior right upper lobectomy and left lower lobe wedge resection. The right middle lobe also appears surgically absent. Scattered linear densities within the right lung and left lower lobe favor scarring. These remain unchanged. Stable 8 mm regular density within the right lung apex on image 42. This may also represent an area of scarring. No new pulmonary nodules. There is a metallic additional marker within the right lung. A subtle adjacent right midlung zone groundglass nodule on image 101 which measures approximately 7 mm. No new pulmonary nodules. No new focal lung consolidations. No suspicious lytic or blastic osseous lesions. Old, healed bilateral rib fractures. Trace right pleural effusion and right basilar mild pleural thickening remains unchanged. The heart is normal in size. Right paratracheal surgical clips are noted. No mediastinal or hilar lymphadenopathy. Normal caliber thoracic aorta. The central pulmonary arteries are patent. IMPRESSION: 1. Overall, no significant change compared to the prior study. 2. Postoperative changes as described above. 3. A subtle 7 mm right midlung zone groundglass nodule remains stable. 4. Trace right pleural effusion and mild right basilar pleural thickening persists. Electronically signed by: Jorden Aleman M.D. 07/06/2017 1:29 PM Dictated Date/Time: 07/06/2017 1:06 PM
--- NOTE | 2017-07-06 15:07 | DIAGNOSTIC IMAGING REPORT ---
CT OF THE ABDOMEN AND PELVIS WITH CONTRAST CLINICAL HISTORY: Non-small cell lung cancer. COMPARISON STUDY: PET CT November 11, [address] of the abdomen and pelvis April 12, 2017. TECHNIQUE: Following IV administration of 93 mL of Optiray-320, axial images of the abdomen and pelvis were obtained from the lung bases to the proximal femurs. Images were reviewed in the axial, sagittal, and coronal planes. IV contrast was administered without complication. A dose lowering technique was utilized adhering to the principles of ALARA. FINDINGS: The chest portion of this study will be reported separately. A trace right pleural effusion with mild pleural thickening is unchanged. The liver, spleen, adrenal glands, kidneys and pancreas are unremarkable. There is no biliary or pancreatic ductal dilatation. No enlarged abdominal or pelvic lymph nodes are present. There is no evidence for a bowel obstruction. Caliber and wall thickness of small and large bowel are normal. The bladder is mildly distended. There are no suspicious osseous lesions. IMPRESSION: 1. No evidence of metastatic disease within the abdomen or pelvis. 2. No change in a trace right pleural effusion with mild pleural thickening. This can be assessed on subsequent studies to ensure stability. Electronically signed by: Frantz Hernadez M.D. 07/06/2017 3:05 PM Dictated Date/Time: 07/06/2017 1:14 PM
== END | disposition home or self-care (01) ==
LOC: C.CTS 10:38
PROVIDERS: ATTEND Internal Medicine Hematology & Oncology
DX: C34.90 Malignant neoplasm of unspecified part of unspecified bronchus or lung (principal); J90 Pleural effusion, not elsewhere classified

== ENCOUNTER → 2017-11-09 | Outpatient (CLI) | payer OTHER ==
--- NOTE | 2017-11-09 16:11 | DIAGNOSTIC IMAGING REPORT ---
CT SCAN OF THE ABDOMEN AND PELVIS WITH IV CONTRAST CLINICAL HISTORY: Lung cancer. COMPARISON STUDY: Abdominal CT dated 07/06/2017. PET/CT dated 11/11/2016. TECHNIQUE: Following the IV administration of 94 cc of Optiray 320, CT scan of the abdomen and pelvis is performed from the lung bases to the proximal femora. Images are reviewed in the axial, sagittal, and coronal planes. IV contrast was administered without complication. A dose lowering technique was utilized adhering to the principles of ALARA. CT DOSE: 508.79 mGy.cm FINDINGS: Lung bases: The heart is normal in size and without pericardial effusion. Postoperative change is suggested in the right lung. There is pleural fluid at the right lung base with associated pleural thickening. Foci of scarring versus atelectasis are noted at the left lung base. Liver: The contrast-enhanced liver is normal in size, contour, and attenuation. There is no intrahepatic biliary ductal dilatation. The hepatic veins and portal veins are patent. Gallbladder: Unremarkable. Spleen: Normal in size and attenuation. Pancreas: Unremarkable. Adrenal glands: Unremarkable. Kidneys: The contrast enhanced kidneys are normal in size and without hydronephrosis. The kidneys enhance symmetrically. Abdominal vasculature: The abdominal aorta is normal in course and caliber noting mild to moderate atherosclerotic calcification. Bowel: There is moderate colonic fecal retention. No bowel obstruction is seen. The appendix is not identified and reported surgically absent. Peritoneum: There is no intraperitoneal free air or abdominal ascites. There is a small fat-containing umbilical hernia. Lymphadenopathy: None. Pelvic viscera: The prostate gland is enlarged and heterogeneous, measuring 5.5 cm in transverse diameter. The bladder is normal as visualized. Skeletal structures: No lytic or blastic lesions are seen. IMPRESSION: 1. There is no evidence of metastatic disease in the abdomen or pelvis. 2. Pleural fluid with associated pleural thickening is again seen at the right lung base. This is likely on a postoperative basis. Clinical correlation will be required. 3. Prostatomegaly. 4. Additional findings as above. Electronically signed by: Landry Womack M.D. 11/09/2017 4:09 PM Dictated Date/Time: 11/09/2017 4:04 PM
--- NOTE | 2017-11-09 16:12 | DIAGNOSTIC IMAGING REPORT ---
CT OF THE CHEST WITH IV CONTRAST CLINICAL HISTORY: LUNG CANCER COMPARISON STUDY: 07/06/2017 TECHNIQUE: Following the IV administration of 94 mL of Optiray-320, CT of the thorax was performed from the thoracic inlet to the lung bases. Images are reviewed in the axial, sagittal, and coronal planes. IV contrast was administered without complication. A dose lowering technique was utilized adhering to the principles of ALARA. CT DOSE: FINDINGS: Thyroid: Imaged portions of the thyroid gland are normal in appearance. Thoracic aorta: The thoracic aorta is normal in course and caliber, noting standard 3-vessel arch anatomy. No aneurysm or dissection is seen. Pulmonary vasculature: The pulmonary trunk is normal in caliber. There are no central filling defects identified to suggest pulmonary embolus. Note that this examination was not protocoled for the evaluation of pulmonary emboli. HEART: The heart is normal in size and configuration, without pericardial effusion. Lungs and pleural spaces: There are postsurgical changes of a right upper lobectomy. Postsurgical changes are also present on the left. There is a small but increasing right pleural effusion. There is no acute parenchymal consolidation. The previously described 7 mm right midlung zone groundglass nodule is less conspicuous on today's study. There is a stable 8 mm irregular opacity within the right lung apex, likely are presenting an area of scarring Mediastinum: There is no evidence of pathologic mediastinal lymphadenopathy. Betsy: There is no evidence of pathologic hilar adenopathy. Axilla: There is no evidence of pathologic axillary lymphadenopathy. Upper abdomen: There is mild hepatic steatosis. No adrenal masses are visualized. Skeletal structures: There are old right-sided rib deformities. No destructive lesions are visualized. IMPRESSION: 1. Small but increasing right pleural effusion 2. No new or enlarging pulmonary nodules. 3. No evidence of pathologic adenopathy Electronically signed by: Ralph Caal M.D. 11/09/2017 4:11 PM Dictated Date/Time: 11/09/2017 4:03 PM
== END | disposition home or self-care (01) ==
LOC: C.CTS 15:03
PROVIDERS: ATTEND Nurse Practitioner Family
DX: C34.90 Malignant neoplasm of unspecified part of unspecified bronchus or lung (principal); N40.0 Benign prostatic hyperplasia without lower urinary tract symptoms; J90 Pleural effusion, not elsewhere classified

== ENCOUNTER → 2018-01-06 | Outpatient (CLI) | payer OTHER ==
--- NOTE | 2018-01-06 13:15 | DIAGNOSTIC IMAGING REPORT ---
CHEST CT WITH CONTRAST CT DOSE: HISTORY: Lung cancer. TECHNIQUE: Multiaxial CT images of the chest were performed following the intravenous administration of contrast. A dose lowering technique was utilized adhering to the principles of ALARA. COMPARISON: Chest CT 11/09/2017. Chest CT 07/06/2017. FINDINGS: Postoperative changes consistent with a prior right upper lobectomy and left lower lobe wedge resection. The right middle lobe also appears surgically absent. Scattered linear densities within the right lung and left lower lobe favor scarring. These remain unchanged. Stable 8 mm irregular density within the right lung apex. This may also represent an area of scarring. No new pulmonary nodules. There is a metallic fiducial marker within the right lung. A subtle adjacent right midlung zone groundglass nodule on image 128 remains unchanged. No new pulmonary nodules. No new focal lung consolidations. No suspicious lytic or blastic osseous lesions. Old, healed bilateral rib fractures. Small right pleural effusion and right basilar mild pleural thickening remains unchanged. The heart is normal in size. Right paratracheal surgical clips are noted. Stable prominent periesophageal lymph nodes. Otherwise, no mediastinal or hilar lymphadenopathy. Normal caliber thoracic aorta. The central pulmonary arteries are patent. IMPRESSION: 1. Overall, no significant change compared to the prior study. 2. Postoperative changes as described above. 3. Stable slightly prominent periesophageal lymph nodes are again noted. 4. Small right pleural effusion and mild right basilar pleural thickening persists. Electronically signed by: Jorden Aleman M.D. 01/06/2018 1:14 PM Dictated Date/Time: 01/06/2018 1:04 PM
--- NOTE | 2018-01-06 13:19 | DIAGNOSTIC IMAGING REPORT ---
CT ABD/PELVIS IV AND ORAL CONT CLINICAL HISTORY: LUNG CA COMPARISON STUDY: November 09, 2017 TECHNIQUE: Following the IV administration of 93 mL of Optiray-320, CT scan of the abdomen and pelvis was performed from the lung bases to the proximal femurs. Images are reviewed in the axial, sagittal, and coronal planes. IV contrast was administered without complication. A dose lowering technique was utilized adhering to the principles of ALARA. CT DOSE: 474.59 mGy.cm FINDINGS: Lower chest: Postsurgical changes are present on the left. There is a small left pleural effusion. Liver: No focal hepatic masses are visualized. The portal and hepatic veins appear patent. There is no ductal dilatation. Gallbladder: Unremarkable. Spleen: Normal in size and attenuation. Pancreas: Unremarkable. Adrenal glands: Unremarkable. Kidneys: There is symmetric renal cortical enhancement. The kidneys are normal in size without hydronephrosis. Bowel: There are no transition zones indicate bowel obstruction. There is no acute diverticulitis. The appendix is not visualized with certainty. Peritoneum: There is no intraperitoneal free air or abdominal ascites. Vasculature: The abdominal aorta is normal in course and caliber. Adenopathy: None. Pelvic viscera: The prostate is mildly enlarged measuring 55 mm Skeletal structures: No destructive osseous lesions are seen. IMPRESSION: 1. No evidence of abdominal or pelvic metastatic disease. 2. Postsurgical changes within the right lung base. Small right pleural effusion. 3. Prostamegaly Electronically signed by: Ralph Caal M.D. 01/06/2018 1:18 PM Dictated Date/Time: 01/06/2018 1:06 PM
== END | disposition home or self-care (01) ==
LOC: C.CTS 12:11
PROVIDERS: ATTEND Internal Medicine Hematology & Oncology
DX: C34.90 Malignant neoplasm of unspecified part of unspecified bronchus or lung (principal); N40.0 Benign prostatic hyperplasia without lower urinary tract symptoms